=== PATIENT | female | born 2000 | race African-American/Black ===

== ENCOUNTER → 2023-10-24 11:48 | Outpatient (REF) | payer OTHER, SELFPAY ==
[2023-10-25 09:48] LABS: Rubeola (Measles) IgG Positive
[2023-10-25 19:36] LABS: Hepatitis B Surface Antibody Positive
[2023-10-25 20:12] LABS: Rubella Positive
== END ==
LOC: REG 11:48
PROVIDERS: ATTENDING PHYSICIAN Nurse Practitioner
DX: Z23 Encounter for immunization (principal)
CPT/HCPCS: 86480; 86706; 86735; 86762; 86765; 86787